=== PATIENT | female | born 1965 | race Caucasian/White ===

== ENCOUNTER 2018-09-18 23:42 | Emergency (ER) | payer MEDICAID, OTHER ==
[~2018-09-18] VITALS: Ht 170.2 cm; Wt 27.3 kg
[2018-09-19 00:04] VITALS: BP 155/103
[2018-09-19] MEDS ORDERED: LIDO20SO16 PO (00:38)
[2018-09-19] MEDS ORDERED: CEPH-571 PO (00:38)
== END 2018-09-19 00:46 | disposition home or self-care (01) ==
LOC: ER 23:43
DX: J02.9 Acute pharyngitis, unspecified (principal); R05 Cough; J35.1 Hypertrophy of tonsils; J39.2 Other diseases of pharynx; F17.200 Nicotine dependence, unspecified, uncomplicated; Z79.899 Other long term (current) drug therapy; Z79.2 Long term (current) use of antibiotics
CPT/HCPCS: 87081; 87880; 99283

== ENCOUNTER 2023-11-25 18:01 | Emergency (ER) | payer MEDICAID ==
[~2023-11-25] VITALS: Ht 170.2 cm; Wt 78.4 kg
[~2023-11-25 18:01] MED LIST: CEPH-571 PO; LIDO20SO16 PO
[2023-11-25 18:56] VITALS: BP 168/101; PULSE 102; TEMP 98.4; O2SAT 98
[2023-11-25] MEDS ORDERED: ketorolac trometh. 30mg/ml inj. IM ONE (19:35)
[2023-11-25] MEDS ORDERED: AMOX-117 PO (19:37)
[2023-11-25] MEDS ORDERED: HYDR-3965 PO (19:37)
[2023-11-25] MEDS: TETanus/Pertussis (Acell)/Diphther VAC/PF (Tdap-Adult) 0.5ml syringe IMVAC ONE (19:54)
[2023-11-25 19:55] VITALS: RESP 16
[2023-11-25] MEDS: ketorolac tromethamine 15mg/ml inj. IM ONE (19:55)
== END 2023-11-25 20:08 | disposition home or self-care (01) ==
LOC: ER 18:02
DX: S80.812A Abrasion, left lower leg, initial encounter (principal); S81.832A Puncture wound without foreign body, left lower leg, initial encounter; L03.116 Cellulitis of left lower limb; Z79.2 Long term (current) use of antibiotics; Z79.899 Other long term (current) drug therapy; W54.0XXA Bitten by dog, initial encounter; Y93.89 Activity, other specified; Y92.89 Other specified places as the place of occurrence of the external cause; Y99.8 Other external cause status
CPT/HCPCS: 90471; 90715; 96372; 99284; J1885

== ENCOUNTER 2024-12-03 18:26 | Emergency (ER) | payer MEDICAID ==
[~2024-12-03] VITALS: Ht 170.2 cm; Wt 80.0 kg
[2024-12-03 18:31] VITALS: BP 173/111; PULSE 116; RESP 16; TEMP 97.7; O2SAT 98
--- NOTE | 2024-12-03 19:10 | Physician Documentation ---
HPI ~ General Chief Complaint: Tingling Stated Complaint: LEFT ARM TINGLING Time Seen by MD: 18:36 Primary Medical Doctor: none History of Present Illness HPI Comments This is a 59-year-old female who presents requesting medication refill, patient reports she was seen at [facility] in [place] diagnosed with hypertension and a pinched nerve which is causing paresthesias to her left arm. 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 Review records indicate patient was prescribed 10 mg daily lisinopril for hypertension and 500 mg methocarbamol q.6 hours for 10 days for cervical radiculopathy. Medication Reconciliation Allergies: Coded Allergies: No Known Allergies (Unverified , 09/19/18) Scheduled Cephalexin (Keflex), 1 CAP PO Q6H Lidocaine Hcl (Xylocaine Viscous), 5 ML PO Q2H PRN SORE THROAT Lisinopril (Lisinopril), 1 TAB PO DAILY Methocarbamol (Methocarbamol), 1 TAB PO Q6H Past Medical History Past Medical History: No Pertinent History Past Surgical History: no surgical history Lives In: Home Review of Systems ROS As stated above in the HPI, otherwise all systems are reviewed and negative. Physical Exam Physical Exam Vital Signs: Temperature: 97.7, Source: Oral, Heart Rate: 116, Respiratory Rate: 16, BP: 173/111, Pulse Oximetry: 98, Weight: 80.000 Oxygen Flow Rate: 0 Physical Exam VITALS: Reviewed and as above. GENERAL: Alert, nontoxic appearing, no apparent distress. 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 Patient is otherwise well-appearing with benign physical exam and stable vital signs. Medic ations will be refilled and sent to local pharmacy. Patient provided follow up instructions and return to care precautions which she verbalized understanding of. Differential Dx:Considerations: Include: Adverse circumstances, Economic, Psychosocial, Medical services unavail., Medication refill, Medication non- compliance Departure Disposition: HOME / SELF CARE / HOMELESS Impression: Primary Impression: Medication refill Additional Impressions: History of paresthesia History of hypertension Condition: Improved Discharge Instructions: Hypertension, Adult, [id number] Additional Instructions: I have refilled your prescriptions, please take them as previously prescribed, you will need to follow up with your primary care provider or the [facility] in the next few days to continue managing these medications. Please return to the emergency department for any new or worsening concerning symptoms. Referrals: NO PRIMARY CARE PROVIDER (PCP) Prescriptions Methocarbamol (Methocarbamol) 500 Mg Tablet 1 TAB PO Q6H for 10 Days, #40 TAB 0 Refills Prov: KENNETH EDUARDO 12/03/24 Lisinopril (LISINOPRIL) 10 Mg Tablet 1 TAB PO DAILY for 30 Days, #30 TAB 0 Refills Prov: KENNETH EDUARDO 12/03/24 Education Educated: Patient Educated regarding: diagnosis, treatment, prognosis, need for follow up Signature Scribe Signature: No scribe Attestation: The note accurately reflects work and decisions made by me.DIANA Dexter 12/04/24 02:39 KENNETH EDUARDO Dec 03, 2024 19:10
[2024-12-03] MEDS ORDERED: LISI10TA27 PO (19:13)
[2024-12-03] MEDS ORDERED: METH-797 PO (19:13)
== END 2024-12-03 19:29 | disposition home or self-care (01) ==
LOC: ER 18:27
DX: I10 Essential (primary) hypertension (principal); Z76.0 Encounter for issue of repeat prescription; M54.12 Radiculopathy, cervical region; Z79.899 Other long term (current) drug therapy
CPT/HCPCS: 99281

== ENCOUNTER 2025-01-02 11:32 | Emergency (ER) | payer MEDICAID ==
[~2025-01-02] VITALS: Ht 170.2 cm; Wt 63.4 kg
[~2025-01-02 11:32] MED LIST changes: +LISI10TA27 PO; +METH-797 PO
[2025-01-02 11:34] VITALS: BP 170/110; PULSE 110; RESP 16; TEMP 98.5; O2SAT 97
[2025-01-02] MEDS ORDERED: LISI10TA27 PO (11:39)
--- NOTE | 2025-01-02 11:40 | Physician Documentation ---
HPI ~ General Stated Complaint: HIGH BLOOD PRESSURE MED REQUEST Time Seen by MD: 11:36 Primary Medical Doctor: none Source: patient Mode of Arrival: POV Exam Limitations: no limitations History of Present Illness HPI Comments 59-year-old female was recently diagnosed with hypertension and prescribed lisinopril 10 mg she is working on trying to get the primary care and has ran out of her medication prior to having her paperwork processed to receive a primary care appointment. No acute concerns Medication Reconciliation Allergies: Coded Allergies: No Known Allergies (Unverified , 09/19/18) Scheduled Cephalexin (Keflex), 1 CAP PO Q6H Lidocaine Hcl (Xylocaine Viscous), 5 ML PO Q2H PRN SORE THROAT Lisinopril (Lisinopril), 1 TAB PO DAILY Methocarbamol (Methocarbamol), 1 TAB PO Q6H Past Medical History Past Medical History: Hypertension Past Surgical History: no surgical history Lives In: Home Review of Systems All Other Systems at this time: Reviewed and Negative Physical Exam Physical Exam Physical Exam General: Alert, no apparent distress. HEENT: PERRL, EOMI, no injection, moist mucous membranes. Neck: Full range of motion. Respiratory: Lungs clear, no respiratory distress. Chest: No accessory muscle use. Cardiovascular: Regular rate and rhythm, no murmurs. Extremities: Normal range of motion, no deformity. Neurologic: Oriented x4. Psychiatric: Normal mood and affect. Skin: Normal color, warm and dry. No edema, no ecchymosis. Medical Decision Making Findings Patient is even keeping track of her blood pressures which have been ranging in the 130s and 120 systolic. Patient states that she has put in an application and can take 10 days process. Medication refilled Departure Time of Disposition: 11:38 Disposition: 01 HOME / SELF CARE / HOMELESS Impression: Primary Impression: History of hypertension Additional Impression: Medication refill Referrals: NO PRIMARY CARE PROVIDER (PCP) Prescriptions Lisinopril (LISINOPRIL) 10 Mg Tablet 1 TAB PO DAILY for 90 Days, #90 TAB 0 Refills Prov: EDNA ALVES NP 01/02/25 Education Educated: Patient Educated regarding: diagnosis, treatment, need for follow up Signature Scribe Signature: No scribe Attestation: The note accurately reflects work and decisions made by me.Edna Alves - SAW STRAIGHTENER 01/02/25 11:40 EDNA ALVES NP Jan 02, 2025 11:40
== END 2025-01-02 11:51 | disposition home or self-care (01) ==
LOC: ER 11:33
DX: I10 Essential (primary) hypertension (principal); Z76.0 Encounter for issue of repeat prescription; Z79.899 Other long term (current) drug therapy
CPT/HCPCS: 99281